=== PATIENT | female | born 1955 | race Caucasian/White ===

== ENCOUNTER → 2016-09-13 | Outpatient (CLI) | payer OTHER ==
--- NOTE | 2016-09-13 10:39 | REPMRS ---
Patient History The patient states she had a clinical breast exam in 07/24 Patient is postmenopausal. Family history of colorectal cancer in maternal cousin at age 50 or over. Benign stereotatic breast biopsy of the left breast, 1999. Taking unspecified hormones for 16 years. Digital Woman Screen Mammo: September 13, 2016 - Exam #: [id number] Bilateral CC and MLO view(s) were taken. Technologist: Rashmi Hills, Technologist Prior study comparison: July 18, 2015, digital woman screen mammo performed at [facility] [employer] [facility]. May 03, 2014, digital woman screen mammo performed at [facility] [employer] [facility]. FINDINGS: There are scattered fibroglandular densities. There has been no change in the appearance of the mammogram from the prior studies. There is a mild amount of residual fibroglandular tissue which is fairly symmetric. There is no interval development of dominant mass, architectural distortion, or clustered microcalcification suggestive of malignancy. ASSESSMENT: BI-RADS/ACR category 1 mammogram. Negative. Recommendation Routine screening mammogram in 1 year (for women over age 40). This mammogram was interpreted with the aid of an FDA-approved computer-aided dectection system. Electronically Signed By: Thiago Post MD 09/13/16 1038
== END ==
LOC: M WHC 10:00
PROVIDERS: ATTEND Internal Medicine
DX: Z12.31 Encounter for screening mammogram for malignant neoplasm of breast (principal); Z78.0 Asymptomatic menopausal state

== ENCOUNTER → 2016-10-25 | Outpatient (CLI) | payer OTHER ==
[2016-10-25 12:38] LABS: ANION GAP 7 MEQ/L (8-16); BLOOD UREA NITROGEN 11 MG/DL (7-18); CALCIUM LEVEL 9.4 MG/DL (8.8-10.2); CARBON DIOXIDE LEVEL 32 MEQ/L (21-32); CHLORIDE LEVEL 101 MEQ/L (98-107); CREATININE FOR GFR 0.75 MG/DL (0.55-1.02); GLOMERULAR FILTRATION RATE > 60.0 (>45); GLUCOSE, FASTING 93 MG/DL (80-110); POTASSIUM SERUM 4.1 MEQ/L (3.5-5.1); SODIUM LEVEL 140 MEQ/L (136-145)
--- NOTE | 2016-10-26 07:55 | ECGEPIP ---
Stationary ECG Study [facility] Test Date: 2016-10-25 Pat Name: KORI PADGETT Department: Room: - Gender: F Data Security Analyst: : 1955 Requested By: BRYAN Smith Order Number: [id number] Reading MD: Osman Collins Measurements Intervals [place] Rate: 84 P: 45 MS: 165 QRS: 3 QRSD: 75 T: 29 QT: 377 QTc: 448 Interpretive Statements SINUS RHYTHM Low voltages Otherwise normal Electronically Signed On 10-26-2016 7:54:54 EST by Osman Collins
== END ==
LOC: M LAB 11:35
PROVIDERS: ATTEND Ophthalmology
DX: Z01.818 Encounter for other preprocedural examination (principal); H25.13 Age-related nuclear cataract, bilateral

== ENCOUNTER → 2016-12-19 | Outpatient (CLI) | payer OTHER ==
[~2016-12-19] VITALS: Ht 154.3 cm; Wt 90.7 kg
[~2016-12-19] MED LIST: ALL10TAB27 PO; BIOF4GEL2 TOP; CENTTAB12 PO; CITRTAB19 PO; CYCL10TA PO; ESTRACE VAG PV; GABA-283 PO; HYDR200T3 PO; HYDR25TAB PO; LIDO5TD TD; LIDOCAINE 2% INJ 100 MG/5 ML SDV (FOR ANES.) As Ordered ONE; METR1GEL4 TOP; MOME50SP; MONT10TA2 PO; NS 1,000 ML IV SCH; OMEG100011 PO; OMEP40CA2 PO; PROPOFOL 200 MG/20 ML VIAL As Ordered ONE; SALI0.653; TYLE650T35 PO; VITA-130 PO; VITA250L PO
--- NOTE | 2016-12-19 08:09 | ROOR ---
Patient Name: Martina Bates Procedure Date: 12/19/2016 7:25 AM Date of : 1955 Age: 61 Room: [facility] Gender: Female Note Status: Finalized Procedure: Upper GI endoscopy Indications: Suspected esophageal reflux Providers: Derick Limon Jr, MD Referring MD: Lolly GARCIA MD Requesting Provider: Medicines: Propofol per Anesthesia Complications: No immediate complications. Procedure: Pre-Anesthesia Assessment: - Prior to the procedure, a History and Physical was performed, and patient medications and allergies were reviewed. The patient is competent. The risks and benefits of the procedure and the sedation options and risks were discussed with the patient. All questions were answered and informed consent was obtained. Patient identification and proposed procedure were verified by the physician and the nurse in the pre-procedure area and in the procedure room. Mental Status Examination: alert and oriented. Airway Examination: normal oropharyngeal airway and neck mobility. Respiratory Examination: clear to auscultation. CV Examination: normal. ASA Grade Assessment: II - A patient with mild systemic disease. After reviewing the risks and benefits, the patient was deemed in satisfactory condition to undergo the procedure. The anesthesia plan was to use moderate sedation / analgesia (conscious sedation). Immediately prior to administration of medications, the patient was re-assessed for adequacy to receive sedatives. The heart rate, respiratory rate, oxygen saturations, blood pressure, adequacy of pulmonary ventilation, and response to care were monitored throughout the procedure. The physical status of the patient was re-assessed after the procedure. The Endoscope was introduced through the mouth, and advanced to the second part of duodenum. The upper GI endoscopy was accomplished without difficulty. The patient tolerated the procedure well. Findings: The upper third of the esophagus, middle third of the esophagus and lower third of the esophagus were normal. A small hiatal hernia was present. Localized severe inflammation characterized by congestion (edema), erosions, erythema, friability and granularity was found in the gastric body and in the gastric antrum. Biopsies were taken with a cold forceps for histology. The duodenal bulb, first portion of the duodenum and second portion of the duodenum were normal. The cardia, gastric fundus, lesser curvature of the stomach, prepyloric region of the stomach and pylorus were normal. Impression: - Normal upper third of esophagus, middle third of esophagus and lower third of esophagus. - Small hiatal hernia. - Gastritis. Biopsied. - Normal duodenal bulb, first portion of the duodenum and second portion of the duodenum. - Normal cardia, gastric fundus, lesser curvature of the stomach, prepyloric region of the stomach and pylorus. Recommendation: - Discharge patient to home (ambulatory). - Use sucralfate tablets 1 gram PO QID daily. - Return to my office in 2 months. Derick Limon MD Derick Limon Jr, MD 12/19/2016 8:08:58 AM This report has been signed electronically. Number of Addenda: 0 Note Initiated On: 12/19/2016 7:25 AM Estimated Blood Loss: Estimated blood loss: none.
--- NOTE | 2016-12-19 08:10 | ROOR ---
Patient Name: Martina Bates Procedure Date: 12/19/2016 7:26 AM Date of : 1955 Age: 61 Room: [facility] Gender: Female Note Status: Finalized Procedure: Colonoscopy Indications: Screening for colorectal malignant neoplasm Providers: Derick Limon Jr, MD Referring MD: Lolly GARCIA MD Requesting Provider: Medicines: Propofol per Anesthesia Complications: No immediate complications. Procedure: Pre-Anesthesia Assessment: - Prior to the procedure, a History and Physical was performed, and patient medications and allergies were reviewed. The patient is competent. The risks and benefits of the procedure and the sedation options and risks were discussed with the patient. All questions were answered and informed consent was obtained. Patient identification and proposed procedure were verified by the physician and the nurse in the pre-procedure area and in the procedure room. Mental Status Examination: alert and oriented. Airway Examination: normal oropharyngeal airway and neck mobility. Respiratory Examination: clear to auscultation. CV Examination: normal. ASA Grade Assessment: II - A patient with mild systemic disease. After reviewing the risks and benefits, the patient was deemed in satisfactory condition to undergo the procedure. The anesthesia plan was to use moderate sedation / analgesia (conscious sedation). Immediately prior to administration of medications, the patient was re-assessed for adequacy to receive sedatives. The heart rate, respiratory rate, oxygen saturations, blood pressure, adequacy of pulmonary ventilation, and response to care were monitored throughout the procedure. The physical status of the patient was re-assessed after the procedure. The Colonoscope was introduced through the anus and advanced to the cecum, identified by appendiceal orifice and ileocecal valve. The colonoscopy was performed without difficulty. The patient tolerated the procedure well. The quality of the bowel preparation was adequate and good. Findings: The perianal and digital rectal examinations were normal. Pertinent negatives include normal sphincter tone, no palpable rectal lesions and no anal lesion or abnormality was detected. The rectum, sigmoid colon, descending colon, transverse colon, ascending colon, cecum, appendiceal orifice and ileocecal valve appeared normal. Impression: - The rectum, sigmoid colon, descending colon, transverse colon, ascending colon, cecum, appendiceal orifice and ileocecal valve are normal. - No specimens collected. Recommendation: - Discharge patient to home (ambulatory). - Repeat colonoscopy in 10 years for screening purposes. Derick Limon MD Derick Limon Jr, MD 12/19/2016 8:10:20 AM This report has been signed electronically. Number of Addenda: 0 Note Initiated On: 12/19/2016 7:26 AM Estimated Blood Loss: Estimated blood loss: none.
[2016-12-19 08:45] VITALS: BP 142/94
== END | disposition home or self-care (01) ==
LOC: M OPP 06:56
PROVIDERS: ATTEND Surgery
DX: Z12.11 Encounter for screening for malignant neoplasm of colon (principal); K21.9 Gastro-esophageal reflux disease without esophagitis; K44.9 Diaphragmatic hernia without obstruction or gangrene; K29.70 Gastritis, unspecified, without bleeding; I10 Essential (primary) hypertension; M19.90 Unspecified osteoarthritis, unspecified site; Z79.899 Other long term (current) drug therapy; Z88.8 Allergy status to other drugs, medicaments and biological substances; Z88.0 Allergy status to penicillin; Z88.1 Allergy status to other antibiotic agents

== ENCOUNTER → 2016-12-24 | Outpatient (REF) | payer OTHER ==
[~2016-12-24] MED LIST changes: -LIDOCAINE 2% INJ 100 MG/5 ML SDV (FOR ANES.) As Ordered ONE; -NS 1,000 ML IV SCH; -PROPOFOL 200 MG/20 ML VIAL As Ordered ONE
== END ==
LOC: M LAB REF 13:17
PROVIDERS: ATTEND Physician Assistant
DX: N39.0 Urinary tract infection, site not specified (principal)

== ENCOUNTER → 2017-07-24 | Outpatient (REF) | payer OTHER ==
[~2017-07-24] MED LIST changes: +SALI0.6523; -SALI0.653; -VITA-130 PO; +VITA500T PO
== END ==
LOC: M LAB REF 13:22
PROVIDERS: ATTEND Physician Assistant Medical
DX: N39.0 Urinary tract infection, site not specified (principal)

== ENCOUNTER → 2017-08-20 | Outpatient (REF) | payer OTHER | LOC: M LAB REF 14:51 | PROVIDERS: ATTEND Nurse Practitioner Family | DX: R19.7 Diarrhea, unspecified (principal) ==

== ENCOUNTER → 2019-03-24 | Outpatient (REF) | payer BC ==
[~2019-03-24] MED LIST changes: -ALL10TAB27 PO; +ALL10TAB28 PO; -GABA-283 PO; +GABA-845 PO; -SALI0.6523; +SALI0.6528
[2019-03-30 08:11] LABS: CALPROTECTIN STOOL <16 ug/g (0-120); PANCREATIC ELASTASE STOOL >500 (>200)
== END ==
LOC: M LAB REF 13:12
PROVIDERS: ATTEND Internal Medicine Gastroenterology
DX: R19.7 Diarrhea, unspecified (principal); K57.30 Diverticulosis of large intestine without perforation or abscess without bleeding

== ENCOUNTER → 2020-08-17 | Outpatient (CLI) | payer MEDICARE ==
[~2020-08-17] MED LIST changes: +ACET650T61 PO; -ALL10TAB28 PO; +CETI-24 PO; +CYCL-707 PO; -CYCL10TA PO; -MONT10TA2 PO; +MONT5TAB2 PO; -OMEP40CA2 PO; +OMEP40CA97 PO; -TYLE650T35 PO; +VITA-243 PO; -VITA500T PO
[2020-08-17 15:16] LABS: ALT/SGPT 41 U/L (12-78)
== END ==
LOC: M LAB 14:24
PROVIDERS: ATTEND Physician Assistant
DX: Z79.899 Other long term (current) drug therapy (principal)

== ENCOUNTER → 2020-09-26 | Outpatient (REF) | payer MEDICARE | LOC: M LAB REF 14:42 | PROVIDERS: ATTEND Dermatology | DX: C44.319 Basal cell carcinoma of skin of other parts of face (principal) | CPT/HCPCS: 11102; 17000; 88305; G0463 ==

== ENCOUNTER → 2020-10-02 | Outpatient (REF) | payer MEDICARE ==
[~2020-10-02] MED LIST changes: +HYDR-3490 PO; -HYDR25TAB PO; +MONT10TA10 PO; -MONT5TAB2 PO
[2020-10-02 14:38] LABS: C REACTIVE PROTEIN QUANTITATIV < 0.30 MG/DL (0.00-0.30); COMPLEMENT C3 120 MG/DL (90-180); COMPLEMENT C4 22 MG/DL (10-40)
[2020-10-06 01:10] LABS: ANTI CENTROMERE ANTIBODY <0.2 AI (0.0-0.9); ANTI DS-DNA AB Negative (Negative); ANTI JO-1 ANTIBODIES <20 Units (<20); ANTI SCLERODERMA ANTIBODIES <0.2 AI (0.0-0.9); ANTI-SMOOTH MUSCLE ANTIBODY 7 Units (0-19); ANTINUCLEAR ANTIBODIES DIRECT Negative (Negative); RNP ANTIBODIES 0.3 AI (0.0-0.9); SJOGREN'S ANTI SS-A <0.2 AI (0.0-0.9); SJOGREN'S ANTI SS-B <0.2 AI (0.0-0.9); SMITH ANTIBODIES <0.2 AI (0.0-0.9)
== END ==
LOC: M LAB REF 12:19
PROVIDERS: ATTEND Internal Medicine
DX: M35.9 Systemic involvement of connective tissue, unspecified (principal); I73.00 Raynaud's syndrome without gangrene

== ENCOUNTER → 2021-09-27 | Outpatient (REF) | payer MEDICARE ==
[~2021-09-27] MED LIST changes: +GABA-283 PO; -GABA-845 PO; -MOME50SP; -MONT10TA10 PO; +MONT10TA97 PO; +NASO50SP3; +OMEP40CA4 PO; -OMEP40CA97 PO
== END ==
LOC: M LAB REF 13:55
PROVIDERS: ATTEND Nurse Practitioner Family
DX: L82.1 Other seborrheic keratosis (principal)
CPT/HCPCS: 11102; 88305; G0463

== ENCOUNTER 2022-01-02 10:40 | Outpatient (RCR) | payer MEDICARE | END 2022-01-05 | LOC: M PT 10:40 | PROVIDERS: ATTEND Orthopaedic Surgery | DX: M25.551 Pain in right hip (principal); M65.851 Other synovitis and tenosynovitis, right thigh ==

== ENCOUNTER 2022-01-28 08:30 | Outpatient (RCR) | payer MEDICARE | END 2022-02-05 | LOC: M PT 08:30 | PROVIDERS: ATTEND Orthopaedic Surgery | DX: M25.559 Pain in unspecified hip (principal) ==

== ENCOUNTER → 2022-04-02 | Outpatient (REF) | payer MEDICARE | LOC: M LAB REF 11:25 | PROVIDERS: ATTEND Internal Medicine | DX: J30.1 Allergic rhinitis due to pollen (principal) ==

== ENCOUNTER → 2023-10-01 | Outpatient (CLI) | payer MEDICARE, OTHER ==
[~2023-10-01] MED LIST changes: -GABA-283 PO; +GABA-284 PO; -HYDR200T3 PO; +HYDR200T46 PO
== END ==
LOC: M RAD 10:51
PROVIDERS: ATTEND Internal Medicine
DX: M79.89 Other specified soft tissue disorders (principal); M79.661 Pain in right lower leg; M79.662 Pain in left lower leg

== ENCOUNTER → 2023-10-08 | Outpatient (CLI) | payer MEDICARE | LOC: M SOG 15:46 | PROVIDERS: ATTEND Physician Assistant | DX: M25.562 Pain in left knee (principal); M17.12 Unilateral primary osteoarthritis, left knee ==

== ENCOUNTER → 2023-11-04 | Outpatient (REF) | payer MEDICARE | LOC: M LAB REF 12:42 | PROVIDERS: ATTEND Internal Medicine | DX: R60.0 Localized edema (principal); M15.9 Polyosteoarthritis, unspecified ==

== ENCOUNTER → 2024-01-12 | Outpatient (CLI) | payer MEDICARE ==
[2024-01-12 17:37] LABS: C REACTIVE PROTEIN QUANTITATIV 0.9 MG/DL (<1.0)
[2024-01-13 11:54] LABS: PERCENT SATURATION 11.1 % (13.2-45.0)
[2024-01-13 11:57] LABS: FERRITIN 28.8 NG/ML (7.3-270.7)
== END ==
LOC: M WUC 15:36
PROVIDERS: ATTEND Internal Medicine
DX: R05.9 Cough, unspecified (principal); J20.9 Acute bronchitis, unspecified; D50.9 Iron deficiency anemia, unspecified

== ENCOUNTER → 2024-01-22 | Outpatient (REF) | payer MEDICARE ==
[2024-01-22 12:52] LABS: CREATININE FOR GFR 0.57 MG/DL (0.55-1.30); GLOMERULAR FILTRATION RATE > 60.0 (>45)
== END ==
LOC: M LABWUC 11:51
PROVIDERS: ATTEND Physician Assistant Surgical
DX: M54.50 Low back pain, unspecified (principal)

== ENCOUNTER → 2024-04-04 | Outpatient (REF) | payer MEDICARE ==
[2024-04-04 19:24] LABS: APPEARANCE, URINE MANUAL HAZY (CLEAR)
[2024-04-04 19:25] LABS: COLOR, URINE MANUAL DK YELLOW (YELLOW); GLUCOSE, URINE (UA) MANUAL NEGATIVE (NEGATIVE); PH,URINE MAN 5.5 UNITS (5.0 - 7.0); PROTEIN, URINE MANUAL TRACE mg/dL (NEGATIVE)
[2024-04-04 19:26] LABS: BILIRUBIN, URINE MANUAL NEGATIVE (NEGATIVE); BLOOD URINE MANUAL NEGATIVE (NEGATIVE); KETONE, URINE MANUAL NEGATIVE (NEGATIVE); LEUKOCYTE ESTERASE, URINE MAN POSITIVE (NEGATIVE); NITRITE, URINE MANUAL NEGATIVE (NEGATIVE); UROBILINOGEN, URINE MANUAL NORMAL (NORMAL)
[2024-04-04 19:36] LABS: WBC, URINE 30-40 /hpf (0-3)
[2024-04-04 19:37] LABS: BACTERIA, URINE MOD AMOUNT; HYALINE CAST, URINE NONE SEEN /lpf (0-1); RBC, URINE NONE SEEN /hpf (0-3); SQUAMOUS EPITHELIAL CELL URINE SMALL AMOUNT /hpf (SMALL AMT)
[2024-04-04 19:38] LABS: AMORPHOUS SEDIMENT, URINE SMALL AMOUNT (NEGATIVE)
== END ==
LOC: M LAB REF 18:44
PROVIDERS: ATTEND Physician Assistant Medical
DX: N39.0 Urinary tract infection, site not specified (principal); B96.20 Unspecified Escherichia coli [E. coli] as the cause of diseases classified elsewhere

== ENCOUNTER → 2024-06-14 | Outpatient (CLI) | payer MEDICARE ==
[2024-06-14 18:44] LABS: HEMOGLOBIN 11.5 g/dl (12.0-15.5); MEAN CORPUSCULAR HEMOGLOBIN 29.3 pg (27.0-33.0); MEAN CORPUSCULAR HGB CONC 31.9 g/dl (32.0-36.5); MEAN CORPUSCULAR VOLUME 91.6 fl (80.0-96.0); PLATELET COUNT, AUTOMATED 239 10^3/uL (150-450); RED BLOOD COUNT 3.93 10^6/uL (4.00-5.40); WHITE BLOOD COUNT 4.1 10^3/uL (4.0-10.0)
[2024-06-14 19:12] LABS: PERCENT SATURATION 19.8 % (13.2-45.0)
== END ==
LOC: M WUC 13:37
PROVIDERS: ATTEND Internal Medicine
DX: D50.9 Iron deficiency anemia, unspecified (principal); K22.10 Ulcer of esophagus without bleeding; K21.9 Gastro-esophageal reflux disease without esophagitis; K58.9 Irritable bowel syndrome, unspecified; Z86.0100 Personal history of colon polyps, unspecified

== ENCOUNTER → 2024-09-13 | Outpatient (CLI) | payer MEDICARE ==
[2024-09-13 16:41] LABS: BASO # 0.1 10^3/uL (0.0-0.2); BASO % 1.2 % (0.0-1.0); EOS # 0.2 10^3/uL (0.0-0.5); EOS % 2.9 % (0.0-3.0); HEMOGLOBIN 11.9 g/dl (12.0-15.5); LYMPH # 1.1 10^3/uL (1.5-5.0); LYMPH % 19.1 % (24.0-44.0); MEAN CORPUSCULAR HEMOGLOBIN 29.2 pg (27.0-33.0); MEAN CORPUSCULAR HGB CONC 32.2 g/dl (32.0-36.5); MEAN CORPUSCULAR VOLUME 90.7 fl (80.0-96.0); MONO # 0.5 10^3/uL (0.0-0.8); NEUTROPHILS # 3.9 10^3/uL (1.5-8.5); NEUTROPHILS % 67.6 % (36.0-66.0); PLATELET COUNT, AUTOMATED 228 10^3/uL (150-450); RED BLOOD COUNT 4.08 10^6/uL (4.00-5.40); WHITE BLOOD COUNT 5.8 10^3/uL (4.0-10.0)
[2024-09-13 16:47] LABS: C REACTIVE PROTEIN QUANTITATIV < 0.50 MG/DL (<1.0)
[2024-09-13 16:49] LABS: ALT/SGPT 15 U/L (7.0-40); AST/SGOT 22 U/L (<34); BLOOD UREA NITROGEN 22 MG/DL (9-23); CREATININE FOR GFR 0.59 MG/DL (0.55-1.30); GLOMERULAR FILTRATION RATE > 60.0 (>39)
[2024-09-13 17:11] LABS: ERYTHROCYTE SEDIMENTATION RATE 14 mm/hr (0-30)
== END ==
LOC: M WUC 14:26
PROVIDERS: ATTEND Physician Assistant Medical
DX: M35.9 Systemic involvement of connective tissue, unspecified (principal); Z79.899 Other long term (current) drug therapy; M54.9 Dorsalgia, unspecified

== ENCOUNTER → 2024-09-22 | Outpatient (REF) | payer MEDICARE ==
[2024-09-22 16:24] LABS: APPEARANCE, URINE CLEAR (CLEAR); BACTERIA, URINE AUTO NEGATIVE (NEGATIVE); BILIRUBIN, URINE AUTO NEGATIVE (NEGATIVE); BLOOD, URINE BLOOD NEGATIVE (NEGATIVE); COLOR, URINE YELLOW (YELLOW); GLUCOSE, URINE (UA) AUTO NEGATIVE (NEGATIVE); KETONE, URINE AUTO NEGATIVE (NEGATIVE); LEUKOCYTE ESTERASE, URINE AUTO NEGATIVE (NEGATIVE); MUCUS, URINE SMALL (NEGATIVE); NITRITE, URINE AUTO NEGATIVE (NEGATIVE); PROTEIN, URINE AUTO NEGATIVE (NEGATIVE); RBC, URINE AUTO 1 /HPF (0-3); SQUAMOUS EPITHELIAL CELL UR AU 1 /HPF (0-6); UROBILINOGEN, URINE AUTO 0.2 mg/dL (0.0-2.0); WBC, URINE AUTO 10 /HPF (0-3)
== END ==
LOC: M LAB REF 16:06
PROVIDERS: ATTEND Physician Assistant
DX: N39.0 Urinary tract infection, site not specified (principal)

== ENCOUNTER → 2025-03-28 | Outpatient (REF) | payer MEDICARE | LOC: M LAB REF 14:23 | PROVIDERS: ATTEND Internal Medicine | DX: D50.9 Iron deficiency anemia, unspecified (principal) ==

== ENCOUNTER → 2025-06-07 | Outpatient (REF) | payer MEDICARE | LOC: M LAB REF 14:31 | PROVIDERS: ATTEND Internal Medicine | DX: D50.9 Iron deficiency anemia, unspecified (principal) ==

== ENCOUNTER → 2025-08-29 | Outpatient (REF) | payer MEDICARE | LOC: M LAB REF 14:15 | PROVIDERS: ATTEND Internal Medicine | DX: D50.9 Iron deficiency anemia, unspecified (principal) ==